=== PATIENT | male | born 1970 | race Caucasian/White ===

== ENCOUNTER 2019-02-08 20:07 | Emergency (ER) | payer OTHER ==
[~2019-02-08] VITALS: Ht 175.3 cm; Wt 88.1 kg
[2019-02-08 20:15] VITALS: Ht 175.3 cm; Wt 88.1 kg
[2019-02-08 21:45] VITALS: BP 137/87
== END 2019-02-08 21:45 | disposition home or self-care (01) ==
LOC: ED 20:07
DX: F07.81 Postconcussional syndrome (principal); S09.8XXA Other specified injuries of head, initial encounter; G43.909 Migraine, unspecified, not intractable, without status migrainosus; W22.8XXA Striking against or struck by other objects, initial encounter; Y93.89 Activity, other specified; Y92.89 Other specified places as the place of occurrence of the external cause; Y99.8 Other external cause status
CPT/HCPCS: Q0162